=== PATIENT | male | born 1960 | race Caucasian/White ===

== ENCOUNTER 2022-12-31 17:18 | Observation (INO) | payer OTHER, SELFPAY ==
[2022-12-31] VITALS (26 sets, daily range): BP systolic 162–180; BP diastolic 94–121; PULSE 84–111; RESP 14–26; TEMP 36.7–36.9; O2SAT 95–98; BMI 31.6; BMI 28.5
--- NOTE | 2022-12-31 17:30 | ECG_ITS ---
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
--- NOTE | 2022-12-31 17:31 | XR_ITS ---
The [address] [address] Patient Name: LIZET RICE MRN: [id number] date: 1960 Sex: M Assigned Patient Location: ER Current Patient Location: ER Accession/Order Number: [id number] Exam Date: 12/31/2022 17:48 Report Date: 12/31/2022 18:32 At the request of: KP CISNEROS Procedure: XR chest 1V EXAM: XR chest 1V HISTORY: confusion COMPARISON: None. TECHNIQUE: One view was performed. FINDINGS: The cardiac silhouette is normal in size. The aorta is tortuous. There is mild central bronchial wall thickening suggestive of bronchitis. There is no focal consolidation, pleural effusion or pneumothorax. Bones and soft tissues appear unremarkable. XR/XR chest 1V IMPRESSION: 1. Mild bronchial wall thickening suggestive of bronchitis. 2. No focal consolidation. Electronically authenticated by: ASMITA RATLIFF Date: 12/31/2022 18:32
--- NOTE | 2022-12-31 17:31 | ED_ITS ---
Documented by User: Matt Gonzalez MD 12/31/22 21:37 HPI - Neuro Symptoms/Deficit General Chief Complaint: Neuro Symptoms/Deficit Stated Complaint: CONFUSION Time Seen by Provider: 12/31/22 17:30 History of Present Illness HPI Narrative: the patient was initially seen by and signed out to me after discussing the case with him thoroughly. The patient's symptoms began yesterday and are confusion. 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 He wasn't sure how to do so he's been doing that every day for years. He has no neurologic deficits and his NIH score is zero. Related Data Home Medications Medication Instructions Recorded Confirmed aspirin 81 mg capsule 81 mg PO DAILY 12/31/22 12/31/22 ibuprofen 200 mg tablet (Addaprin) 200 mg PO TID-QID PRN fever 12/31/22 12/31/22 naproxen sodium 220 mg tablet 220 mg PO BID PRN pain 12/31/22 12/31/22 (Aleve) Allergies Allergy/AdvReac Type Severity Reaction Status Date / Time No Known Drug Allergies Allergy Verified 12/31/22 17:25 [facility] Medical History (Updated 12/31/22 @ 21:37 by Matt Gonzalez MD) Lung nodule ?R91.1 - Solitary pulmonary nodule (ICD-10) PTSD (post-traumatic stress disorder) ?F43.10 - Post-traumatic stress disorder, unspecified (ICD-10) Exam Constitutional Vital Signs, click to edit/add: Last Vital Signs Temp 98.4 F 12/31/22 17:21 Pulse 106 H 12/31/22 17:57 Resp 18 12/31/22 17:57 BP 178/94 H 12/31/22 17:57 Pulse Ox 97 12/31/22 17:57 O2 Del Method Room Air 12/31/22 17:35 Course Vital Signs Vital signs: Vital Signs Temperature 98.4 F 12/31/22 17:21 Pulse Rate 109 H 12/31/22 17:21 Respiratory Rate 18 12/31/22 17:21 Blood Pressure 168/100 H 12/31/22 17:21 Pulse Oximetry 97 12/31/22 17:21 Oxygen Delivery Method Room Air 12/31/22 17:21 Temperature 98.4 F 12/31/22 17:21 Pulse Rate 106 H 12/31/22 17:57 Respiratory Rate 18 12/31/22 17:57 Blood Pressure 178/94 H 12/31/22 17:57 Pulse Oximetry 97 12/31/22 17:57 Oxygen Delivery Method Room Air 12/31/22 17:35 MDM - Neuro Symptoms/Deficit MDM Narrative Medical decision making narrative: CT and CTA are negative and the case is discussed with Dr. Colvin. The patient will be admitted here and will likely need an MRI tomorrow. Differential Diagnosis Differential diagnosis: Likely transient cerebral ischemia and other (CVA, confusion) Lab Data Attestation: I reviewed the patient's lab results. Labs: Lab Results 12/31/22 Range/Units 17:44 WBC 9.0 (4.0-11.0) 10^3/uL RBC 4.53 L (4.70-6.10) 10^6/uL Hgb 14.5 (14.0-18.0) g/dL Hct 42.6 (42.0-54.0) % MCV 94.0 (80.0-94.0) fL MCH 32.0 (25.9-34.0) pg MCHC 34.0 (29.9-35.2) g/dL RDW 12.7 (11.0-15.0) % Plt Count 282 (150-450) 10^3/uL MPV 10.5 (9.5-13.5) fL Neut % (Auto) 57.5 (43.0-75.0) % Lymph % (Auto) 30.8 (20.5-60.0) % [place] % (Auto) 6.6 (1.7-12.0) % Eos % (Auto) 4.2 (0.9-7.0) % Baso % (Auto) 0.6 (0.2-2.0) % Neut # (Auto) 5.2 (1.4-6.5) 10^3/uL Lymph # (Auto) 2.8 (1.2-3.8) 10^3/uL [place] # (Auto) 0.6 (0.3-0.8) 10^3/uL Eos # (Auto) 0.4 (0.0-0.7) 10^3/uL Baso # (Auto) 0.1 (0.0-0.1) 10^3/uL Abs Immat Gran (auto) 0.03 (0.00-0.03) 10^3/uL Imm/Tot Granulo (auto) 0.3 (0.0-0.5) % Sodium 141 (136-145) mmol/L Potassium 4.1 (3.5-5.1) mmol/L Chloride 103 (98-107) mmol/L Carbon Dioxide 28.7 (21.0-32.0) mmol/L Anion Gap 13.4 BUN 15.0 (7.0-18.0) mg/dL Creatinine 0.96 (0.70-1.30) mg/dL Est GFR ( Amer) >60 (>=60) Est GFR (Non-Af Amer) >60 (>=60) BUN/Creatinine Ratio 15.6 Glucose 93 (74-106) mg/dL Calcium 9.7 (8.5-10.1) mg/dL Total Bilirubin 0.6 (0.2-1.0) mg/dL AST 20 (15-37) U/L ALT 26 (16-63) U/L Alkaline Phosphatase 80 (46-116) U/L Total Protein 7.8 (6.4-8.2) g/dL Albumin 3.9 (3.4-5.0) g/dL Globulin 3.9 g/dL Albumin/Globulin Ratio 1.0 TSH 1.301 (0.358-3.740) uIU/mL Imaging Data CT brain, CTA brain: Radiologist's impression: Procedure: CT angio head EXAM: CT angio head HISTORY: altered mental status COMPARISON: CT head 12/31/2022. TECHNIQUE: Axial postcontrast CTA imaging of the head was performed with coronal and sagittal reformats. Maximum intensity projection and 3-D reformats were performed on a separate workstation. FINDINGS: Anterior circulation: No evidence of aneurysm, significant stenosis, or occlusion. Vertebrobasilar system: No evidence of aneurysm, significant stenosis, or occlusion. Strongly hypoplastic bilateral P1 posterior cerebral artery segment with type bilateral posterior cerebral arteries. Venous sinuses: Grossly patent. Additional comments: No abnormal intracranial enhancement. IMPRESSION: No significant stenosis, large vessel occlusion or aneurysm involving the intracranial arterial vasculature. Electronically authenticated by: IVA Berry: 12/31/2022 20:56 Procedure: CT stroke head/brain wo con EXAMINATION: CT stroke head/brain wo con, 12/31/2022 5:48 PM EDT HISTORY: confusion COMPARISON: None. TECHNIQUE: CT scan of the head was performed without IV contrast. CT dose reduction technique was used, including Automated Exposure Control. FINDINGS: BRAIN PARENCHYMA/CSF SPACES: Moderately enlarged ventricles and sulci consistent with atrophy. There is no hemorrhage, mass effect or midline shift. Small likely chronic lacunar infarct in the right basal ganglia. Mild low-attenuation in the white matter consistent with chronic microvascular ischemia. There is a partially empty sella. PARANASAL SINUSES: Air-fluid level and mucosal thickening in the right sphenoid sinus consistent with sinusitis. SKULL BASE AND CALVARIUM: Normal. EXTRACRANIAL SOFT TISSUES: Normal. IMPRESSION: 1. No acute intracranial abnormality. 2. Atrophy, chronic microvascular ischemia and chronic lacunar infarct in the right basal ganglia. 3. Mild right sphenoid sinusitis. 4. Partially empty sella. Electronically authenticated by: ASMITA RATLIFF Date: 12/31/2022 18:33 Discharge Plan Discharge Chief Complaint: Neuro Symptoms/Deficit Clinical Impression: Acute confusion Patient Disposition: Admitted as Observation Time of Disposition Decision: 21:37 Condition: Good Prescriptions / Home Meds: No Action aspirin 81 mg capsule 81 mg PO DAILY naproxen sodium [Aleve] 220 mg tablet 220 mg PO BID PRN (Reason: pain) ibuprofen [Addaprin] 200 mg tablet 200 mg PO TID-QID PRN (Reason: fever) Referrals: Physician,Non-Staff, [Primary Care Provider] - 1 week Documented by User: Chuy Grissom MD HPI - Neuro Symptoms/Deficit General Chief Complaint: Neuro Symptoms/Deficit Stated Complaint: CONFUSION Time Seen by Provider: 12/31/22 17:30 Source: family Mode of arrival: ambulance Related Data Home Medications Medication Instructions Recorded Confirmed aspirin 81 mg capsule 81 mg PO DAILY 12/31/22 12/31/22 ibuprofen 200 mg tablet (Addaprin) 200 mg PO TID-QID PRN fever 12/31/22 12/31/22 naproxen sodium 220 mg tablet 220 mg PO BID PRN pain 12/31/22 12/31/22 (Aleve) Allergies Allergy/AdvReac Type Severity Reaction Status Date / Time No Known Drug Allergies Allergy Verified 12/31/22 17:25 PFSH [facility] Medical History (Updated 12/31/22 @ 21:37 by Matt Gonzalez MD) Lung nodule ?R91.1 - Solitary pulmonary nodule (ICD-10) PTSD (post-traumatic stress disorder) ?F43.10 - Post-traumatic stress disorder, unspecified (ICD-10) Exam Constitutional Vital Signs, click to edit/add: Last Vital Signs Temp 98.4 F 12/31/22 17:21 Pulse 106 H 12/31/22 17:57 Resp 18 12/31/22 17:57 BP 178/94 H 12/31/22 17:57 Pulse Ox 97 12/31/22 17:57 O2 Del Method Room Air 12/31/22 17:35 Course Vital Signs Vital signs: Vital Signs Temperature 98.4 F 12/31/22 17:21 Pulse Rate 109 H 12/31/22 17:21 Respiratory Rate 18 12/31/22 17:21 Blood Pressure 168/100 H 12/31/22 17:21 Pulse Oximetry 97 12/31/22 17:21 Oxygen Delivery Method Room Air 12/31/22 17:21 Temperature 98.4 F 12/31/22 17:21 Pulse Rate 106 H 12/31/22 17:57 Respiratory Rate 18 12/31/22 17:57 Blood Pressure 178/94 H 12/31/22 17:57 Pulse Oximetry 97 12/31/22 17:57 Oxygen Delivery Method Room Air 12/31/22 17:35 MDM - Neuro Symptoms/Deficit Lab Data Labs: Lab Results 12/31/22 Range/Units 17:44 WBC 9.0 (4.0-11.0) 10^3/uL RBC 4.53 L (4.70-6.10) 10^6/uL Hgb 14.5 (14.0-18.0) g/dL Hct 42.6 (42.0-54.0) % MCV 94.0 (80.0-94.0) fL MCH 32.0 (25.9-34.0) pg MCHC 34.0 (29.9-35.2) g/dL RDW 12.7 (11.0-15.0) % Plt Count 282 (150-450) 10^3/uL MPV 10.5 (9.5-13.5) fL Neut % (Auto) 57.5 (43.0-75.0) % Lymph % (Auto) 30.8 (20.5-60.0) % [place] % (Auto) 6.6 (1.7-12.0) % Eos % (Auto) 4.2 (0.9-7.0) % Baso % (Auto) 0.6 (0.2-2.0) % Neut # (Auto) 5.2 (1.4-6.5) 10^3/uL Lymph # (Auto) 2.8 (1.2-3.8) 10^3/uL [place] # (Auto) 0.6 (0.3-0.8) 10^3/uL Eos # (Auto) 0.4 (0.0-0.7) 10^3/uL Baso # (Auto) 0.1 (0.0-0.1) 10^3/uL Abs Immat Gran (auto) 0.03 (0.00-0.03) 10^3/uL Imm/Tot Granulo (auto) 0.3 (0.0-0.5) % Sodium 141 (136-145) mmol/L Potassium 4.1 (3.5-5.1) mmol/L Chloride 103 (98-107) mmol/L Carbon Dioxide 28.7 (21.0-32.0) mmol/L Anion Gap 13.4 BUN 15.0 (7.0-18.0) mg/dL Creatinine 0.96 (0.70-1.30) mg/dL Est GFR ( Amer) >60 (>=60) Est GFR (Non-Af Amer) >60 (>=60) BUN/Creatinine Ratio 15.6 Glucose 93 (74-106) mg/dL Calcium 9.7 (8.5-10.1) mg/dL Total Bilirubin 0.6 (0.2-1.0) mg/dL AST 20 (15-37) U/L ALT 26 (16-63) U/L Alkaline Phosphatase 80 (46-116) U/L Total Protein 7.8 (6.4-8.2) g/dL Albumin 3.9 (3.4-5.0) g/dL Globulin 3.9 g/dL Albumin/Globulin Ratio 1.0 TSH 1.301 (0.358-3.740) uIU/mL Discharge Plan Discharge Chief Complaint: Neuro Symptoms/Deficit Clinical Impression: Acute confusion Patient Disposition: Admitted as Observation Time of Disposition Decision: 21:37 Condition: Good Prescriptions / Home Meds: No Action aspirin 81 mg capsule 81 mg PO DAILY naproxen sodium [Aleve] 220 mg tablet 220 mg PO BID PRN (Reason: pain) ibuprofen [Addaprin] 200 mg tablet 200 mg PO TID-QID PRN (Reason: fever) Referrals: Physician,Non-Staff, MD [Primary Care Provider] - 1 week
--- NOTE | 2022-12-31 17:32 | CT_ITS ---
The [address] [address] Patient Name: LIZET RICE MRN: [id number] date: 1960 Sex: M Assigned Patient Location: ER Current Patient Location: ER Accession/Order Number: [id number] Exam Date: 12/31/2022 17:48 Report Date: 12/31/2022 18:33 At the request of: KP CISNEROS Procedure: CT stroke head/brain wo con EXAMINATION: CT stroke head/brain wo con, 12/31/2022 5:48 PM EDT HISTORY: confusion COMPARISON: None. TECHNIQUE: CT scan of the head was performed without IV contrast. CT dose reduction technique was used, including Automated Exposure Control. FINDINGS: BRAIN PARENCHYMA/CSF SPACES: Moderately enlarged ventricles and sulci consistent with atrophy. There is no hemorrhage, mass effect or midline shift. Small likely chronic lacunar infarct in the right basal ganglia. Mild low-attenuation in the white matter consistent with chronic microvascular ischemia. There is a partially empty sella. PARANASAL SINUSES: Air-fluid level and mucosal thickening in the right sphenoid sinus consistent with sinusitis. SKULL BASE AND CALVARIUM: Normal. EXTRACRANIAL SOFT TISSUES: Normal. CT/CT stroke head/brain wo con IMPRESSION: 1. No acute intracranial abnormality. 2. Atrophy, chronic microvascular ischemia and chronic lacunar infarct in the right basal ganglia. 3. Mild right sphenoid sinusitis. 4. Partially empty sella. Electronically authenticated by: ASMITA RATLIFF Date: 12/31/2022 18:33
--- NOTE | 2022-12-31 17:36 | PC.NURSE ---
bilat hand grasps strong and equal, bilat feet strength strong and equal, bilat pupils slow but equal and reactive. No facial drooping at this time
[2022-12-31 17:52] LABS: Basophils Absolute Auto 0.1 10^3/uL (0.0-0.1); Basophils Percent Auto 0.6 % (0.2-2.0); Eosinophils Absolute Auto 0.4 10^3/uL (0.0-0.7); Eosinophils Percent Auto 4.2 % (0.9-7.0); Hematocrit 42.6 % (42.0-54.0); Hemoglobin 14.5 g/dL (14.0-18.0); Immature Granulocytes Abs Auto 0.03 10^3/uL (0.00-0.03); Immature Granulocytes Pct Auto 0.3 % (0.0-0.5); Lymphocytes Absolute Auto 2.8 10^3/uL (1.2-3.8); Lymphocytes Percent Auto 30.8 % (20.5-60.0); Mean Platelet Volume 10.5 fL (9.5-13.5); Monocytes Absolute Auto 0.6 10^3/uL (0.3-0.8); Monocytes Percent Auto 6.6 % (1.7-12.0); Neutrophils Absolute Auto 5.2 10^3/uL (1.4-6.5); Neutrophils Percent Auto 57.5 % (43.0-75.0); Platelet Count 282 10^3/uL (150-450); Red Blood Count 4.53 10^6/uL (4.70-6.10); Red Cell Distribution Width 12.7 % (11.0-15.0)
[2022-12-31 18:12] LABS: Alanine Aminotransferase 26 U/L (16-63); Albumin Level 3.9 g/dL (3.4-5.0); Alkaline Phosphatase 80 U/L (46-116); Anion Gap 13.4; Aspartate Amino Transferase 20 U/L (15-37); BUN Creatinine Ratio 15.6; Bilirubin Total 0.6 mg/dL (0.2-1.0); Calcium 9.7 mg/dL (8.5-10.1); Carbon Dioxide 28.7 mmol/L (21.0-32.0); Chloride 103 mmol/L (98-107); Estimated GFR (African America >60 (>=60); Estimated GFR (Non-African Ame >60 (>=60); Globulin 3.9 g/dL; Glucose 93 mg/dL (74-106); Potassium 4.1 mmol/L (3.5-5.1); Sodium 141 mmol/L (136-145); Total Protein 7.8 g/dL (6.4-8.2)
[2022-12-31 18:17] LABS: Thyroid Stimulating Hormone 1.301 uIU/mL (0.358-3.740)
--- NOTE | 2022-12-31 18:27 | CT_ITS ---
The [address] [address] Patient Name: LIZET RICE MRN: [id number] date: 1960 Sex: M Assigned Patient Location: ED.MAIN Current Patient Location: ED.MAIN Accession/Order Number: [id number] Exam Date: 12/31/2022 19:00 Report Date: 12/31/2022 20:56 At the request of: KP CISNEROS Procedure: CT angio head EXAM: CT angio head HISTORY: altered mental status COMPARISON: CT head 12/31/2022. TECHNIQUE: Axial postcontrast CTA imaging of the head was performed with coronal and sagittal reformats. Maximum intensity projection and 3-D reformats were performed on a separate workstation. FINDINGS: Anterior circulation: No evidence of aneurysm, significant stenosis, or occlusion. Vertebrobasilar system: No evidence of aneurysm, significant stenosis, or occlusion. Strongly hypoplastic bilateral P1 posterior cerebral artery segment with type bilateral posterior cerebral arteries. Venous sinuses: Grossly patent. Additional comments: No abnormal intracranial enhancement. CT/CT angio head IMPRESSION: No significant stenosis, large vessel occlusion or aneurysm involving the intracranial arterial vasculature. Electronically authenticated by: IVA WORTHINGTON Date: 12/31/2022 20:56
--- NOTE | 2022-12-31 20:50 | PC.NURSE ---
no changes in neuro status at this time
[2022-12-31 21:39] LABS: Amphetamine Screen Urine NEGATIVE (NEGATIVE); Barbiturates Screen Urine NEGATIVE (NEGATIVE); Benzodiazepines Screen Urine NEGATIVE (NEGATIVE); Buprenorphine Screen Urine NEGATIVE (NEGATIVE); Cannabinoid Screen Urine POSITIVE (NEGATIVE); Cocaine Screen Urine NEGATIVE (NEGATIVE); Methadone Screen Urine NEGATIVE (NEGATIVE); Methamphetamines Screen Urine NEGATIVE (NEGATIVE); Opiate Screen Urine NEGATIVE (NEGATIVE); Oxycodone Screen Urine NEGATIVE (NEGATIVE); Phencyclidine Screen Urine NEGATIVE (NEGATIVE); Tricyclic Antidepressant Urine NEGATIVE (NEGATIVE)
[2022-12-31] MEDS: NICOTINE 14 MG PATCH TD (21:54)
[2023-01-01] VITALS (18 sets, daily range): BP systolic 125–180; BP diastolic 76–104; PULSE 78–92; RESP 16–18; TEMP 36.4–36.7; O2SAT 92–94
--- NOTE | 2023-01-01 00:27 | MR_ITS ---
The [address] [address] Patient Name: LIZET RICE MRN: [id number] date: 1960 Sex: M Assigned Patient Location: MS Current Patient Location: MS Accession/Order Number: [id number] Exam Date: 01/01/2023 11:15 Report Date: 01/01/2023 14:45 At the request of: MANINDER SIDDIQUI Procedure: MR head/brain wo con MR head/brain wo con, 01/01/2023 11:15 AM EDT INDICATION: tia COMPARISON: CT of the head dated 12/31/2022 TECHNIQUE: Multiplanar, multisequential MRI images of brain were obtained without injection of contrast. FINDINGS: The cerebral sulci as well as ventricular system are appropriate for age. There is no restricted diffusion. Hyperintensities on T2 and FLAIR images in the vesna and solano radiata and centrum semiovale with sparing of U fibers are nonspecific, statistically most likely consistent with moderate microvascular ischemic changes. There is no intracranial mass, mass effect, midline shift, intra or extra-axial fluid collection or large hemorrhage. Normal flow-void in the intracranial vessels is noted. Mild mucosal thickening within the sphenoid and right maxillary sinuses is noted. There is a retention cyst within the right maxillary sinus. The visualized portions of orbits, mastoid air cells as well as remainder paranasal sinuses are unremarkable. MR/MR head/brain wo con IMPRESSION: No acute intracranial process is noted. Electronically authenticated by: YUNIER SARMIENTO Date: 01/01/2023 14:45
--- NOTE | 2023-01-01 00:27 | CA_ITS ---
Patient Name Site Name LIZET RICE [facility] Account No Medical Record Number Age Sex Date Time [id number] [facility]:[id number] M 01/02/2023 09:08 At the Request Of MANINDER SIDDIQUI ECHOCARDIOGRAM REPORT PROCEDURE: CA ECHO DOPPLER COMPLETE INDICATIONS: TIA, hypertension, smoker COMPARISON: None. DESCRIPTION: COMPLETE ECHOCARDIOGRAM Real-time transthoracic echocardiography with 2D, M-mode, spectral and color flow Doppler performed. QUALITY: Technical quality was good. LEFT VENTRICLE: Normal chamber size. Mild concentric left ventricular hypertrophy. Normal systolic function. LV EF: Normal left ventricular ejection fraction, (>55%). DIASTOLIC: Normal diastolic function. ATRIAL SEPTUM: LEFT ATRIUM: Normal chamber size. RIGHT ATRIUM: Normal chamber size. RIGHT VENTRICLE: Normal chamber size. Normal right ventricular systolic function. TRICUSPID VALVE: Normal mobility and thickness. No stenosis with no regurgitation. MITRAL VALVE: Normal mobility and thickness. No evidence of mitral valve stenosis. There is no mitral annular calcification. No mitral regurgitation. AORTIC VALVE: Normal trileaflet appearance. Mildly calcified aortic valve. Normal leaflet mobility. No evidence of aortic valve stenosis. Trivial aortic regurgitation. AORTIC ROOT: Normal diameter and appearance. PULMONIC VALVE: Normal thickness and mobility. No stenosis. Trivial regurgitation. PERICARDIUM: No evidence of pericardial effusion. IVC: Collapses with inspirations. PLEURA: CONCLUSION: 1. Mild concentric left ventricular hypertrophy with normal systolic function. LVEF is 60%. 2. Normal right ventricular size and systolic function. 3. No significant valvular dysfunction. Adult Echocardiography Procedure Report Left Ventricle LVEDD (3.7 - 5.6 cm): 4.34 cm LVESD (2.2 - 4.0 cm): 3.73 cm LVIVS thickness (0.6 - 1.2 cm): 1.03 cm LVPW thickness (0.5 - 1.0 cm): 1.16 cm e': 0.09 m/s E - e': 5.97 LVOT Max Gradient: 5.23 mm[Hg], 4.98 mm[Hg] LVOT Area (cm2): 1.13 m/s Peak Velocity (LVOT): 1.14 m/s, 1.12 m/s Mean Velocity (LVOT): 0.76 m/s LVOT Diameter 2.62 cm Left Atrium LA Volume Index (2D A2C): 23.78 ml/m2 Left Atrium Systolic Dimension: 2.90 cm Mitral Valve MV E to A Ratio: 0.71, 0.73 Mitral Valve A-Wave Peak Velocity: 0.74 m/s Mitral Valve E-Wave Peak Velocity: 0.53 m/s Right Ventricle Aorta AO Root Diam: 3.77 cm Aortic Valve AoV Area (Peak Horacio): 4.82 cm2, 4.88 cm2 AoV Area (VTI): 4.50 cm2, 4.43 cm2 Peak Velocity(Antegrade Flow): 1.26 m/s Peak Gradient(Antegrade Flow): 6.38 mm[Hg] Mean Velocity(Antegrade Flow): 0.91 m/s Mean Gradient(Antegrade Flow): 3.77 mm[Hg] Velocity Time Integral: 25.30 cm Tricuspid Valve Pulmonic Valve Mean Gradient: 2.37 mm[Hg], 2.52 mm[Hg] Mean Velocity: 0.73 m/s, 0.74 m/s Peak Velocity: 0.98 m/s, 0.85 m/s Peak Gradient: 2.91 mm[Hg], 3.74 mm[Hg], 3.97 mm[Hg] Right Atrium Right Atrium Systolic Pressure: 26.59 ml, 26.59 ml Dictated by: Feng Barrera M.D. on 01/02/2023 at 18:48 Approved by: Feng Barrera M.D. on 01/02/2023 at 18:50
--- NOTE | 2023-01-01 00:32 | W.PM.TELEPN ---
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 Over the last 24 hours, he has been having some episodes of confusion. He had trouble speaking and was not able to find the right word. He then had jumbled up speech. He denies facial droop dysphagia or any generalized weakness. He denies any ataxia. He was not able to work something on his computer and was not able to process well. He went to sleep and he woke up feeling better. He presented to the ED today because he started having worsening symptoms later in the afternoon. He stated he did receive his flu shot 2 to 3 weeks ago and a vaccine for herpes zoster. He underwent a head CT and is being admitted for further TIA work-up. Exam Narrative Exam Narrative: General : Alert and oriented x3 HEENT : Extraocular movements intact, pupils equal round and reactive to light and accommodation Neck: Supple, no JVD Chest: Clear to auscultation bilaterally, no wheezes Heart: Regular rate and rhythm, S1 and S2 heard Abdomen: Soft nontender nondistended. Extremities: No clubbing cyanosis or edema Neurologically: Moving all 4 extremities Skin: No rashes Constitutional Vital Signs, click to edit/add: Last Vital Signs Temp 98.1 F 12/31/22 22:34 Pulse 84 12/31/22 22:34 Resp 20 12/31/22 22:34 BP 164/96 H 12/31/22 22:34 Pulse Ox 96 12/31/22 22:34 O2 Del Method Room Air 12/31/22 22:34 Progress Note: Objective Labs Labs: Short CBC 12/31/22 Range/Units 17:44 WBC 9.0 (4.0-11.0) 10^3/uL Hgb 14.5 (14.0-18.0) g/dL Hct 42.6 (42.0-54.0) % Plt Count 282 (150-450) 10^3/uL BMP 12/31/22 17:44 Sodium 141 Potassium 4.1 Chloride 103 Carbon Dioxide 28.7 BUN 15.0 Creatinine 0.96 Glucose 93 Calcium 9.7 Liver Function 12/31/22 Range/Units 17:44 Total Bilirubin 0.6 (0.2-1.0) mg/dL AST 20 (15-37) U/L ALT 26 (16-63) U/L Alkaline Phosphatase 80 (46-116) U/L Albumin 3.9 (3.4-5.0) g/dL Progress Note: A&P Assessment and Plan (1) Acute confusion: Plan The patient is a 62-year-old male with above medical problems, presenting with confusion and expressive aphasia, likely from TIA. TIA -Provide supportive care -Placed on telemetry, look for underlying arrhythmia -Start daily aspirin -Check lipid panel -Check MRI of brain -Check echocardiogram and carotid ultrasound -PT/OT evaluation -Patient did have cannabis in his drug screen, his confusion could have also been related to that Nicotine dependence -Provide nicotine patch Accelerated hypertension -Hydralazine IV as needed Constipation -Add bowel regimen Dysuria -Check UA DVT Prophylaxis -Lovenox, SCDs Medication review -Medication reconciliation form completed Goals of care -Full code Communications -Discussed with the emergency room physician -Discussed with the bedside nurse -Patient updated of plan of care, all questions answered to their satisfaction Disposition -Home when medically stable Telemedicine clause -As the provider of this telehealth evaluation, requested by the patient's evaluating physician, I attest that I introduced myself to the patient, provided my credentials and determined that telemedicine via a real-time, two-way interactive audio and video platform is an appropriate and effective means of providing this service. -I reviewed the patient's chart and had a discussion with the member of the patient's treatment team. -The patient and I mutually agreed with continuation of this evaluation via telemedicine. The patient consented for the telemedicine evaluation. -This virtual encounter was taken place from [place], [place]. The encounter was approximately 35 minutes. The nurse was present during the entire time of the encounter and was able to remove the stethoscope and appropriate directions. The patient was evaluated at [facility] Telemedicine Attestation Telemedicine Attestation I conducted this encounter from [] via secure live, [id number] video conference with the patient, located at [facility] with []. Prior to the interview, the risks and benefits of telemedicine were discussed with the patient and verbal consent was obtained.
[2023-01-01] MEDS: ENOXAPARIN SODIUM 40 MG/0.4 ML SYRINGE SUBQ (01:39)
[2023-01-01] MEDS: ASPIRIN 81 MG TAB.CHEW PO ×2 (01:39→09:04)
[2023-01-01] MEDS: 0.9 % SODIUM CHLORIDE 1,000 ML 75 ML IV ×2 (01:39→13:57)
[2023-01-01 05:56] LABS: Chol HDL Ratio 3.9; Cholesterol 159 mg/dL (<=200); HDL Cholesterol 41 mg/dL (40-60); Triglycerides 80 mg/dL (<=150)
--- NOTE | 2023-01-01 07:52 | US_ITS ---
[address] [address] Patient Name: LIZET RICE MRN: [id number] date: 1960 Sex: M Assigned Patient Location: [place] Current Patient Location: [place] Accession/Order Number: [id number] Exam Date: 01/01/2023 09:45 Report Date: 01/01/2023 11:43 At the request of: JOSE VILCHIS Procedure: US carotid duplex BI ULTRASOUND Carotid artery color duplex History: TIA. COMPARISON: None. METHOD: Bilateral carotid arterial duplex examination was performed using B-mode, color flow and spectral analysis. Carotid stenosis is reported according to validated velocity parameters, similar to NASCET criteria. FINDINGS: There a moderate heterogeneous plaques in the right and left internal carotid arteries. There are normal-appearing spectral arterial waveforms. There is normal color flow. The peak-systolic velocity in the internal carotid arteries in cm/s is as follows: RIGHT INTERNAL CAROTID ARTERY Proximal: 65 Mid: 75 Distal: 86 LEFT INTERNAL CAROTID ARTERY Proximal: 46 Mid: 68 There are no elevated velocities in the common carotid or external carotid arteries bilaterally. There are forward-flow vertebral arteries. US/US carotid duplex BI IMPRESSION: No evidence of hemodynamically significant stenosis. Moderate heterogeneous plaque in the right and left internal carotid arteries. Electronically authenticated by: GEORGI STACK Date: 01/01/2023 11:43
--- NOTE | 2023-01-01 07:54 | P.HP_ITS ---
H&P: HPI History of Present Illness Chief complaint: CONFUSION, Altered Mental Status Narrative: patient is a 62-year-old male with past history of a one pack per day smoker but no other known history other than he reports she's been getting worked up for a right lung nodule. 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 He also receives care at the [facility] in [place] and notes he recently had a cardiac workup, pre-cancer screening and was given to be scheduled for a screening colonoscopy in January. They have also been working up this right lung nodule. He denies any prior stroke history states that his mother had a history of strokes when she was older. He has no history of high cholesterol no illicit drug use although he did test positive for marijuana. He states that he was in normal state of health until Monday of last week and he started to feel funny. He said he slept most of the day after feeling this way on Monday. He says simple tasks like managing his truck [employer] which she's done for years became more difficult and he couldn't think of how to use it. He also finds it difficult to find words but his speech does not appear slurred on exam. He denies any deficits such as arm hand or leg tingling or weakness. He denies any facial droop. He denies any head trauma. Initial CT of the head showed chronic microvascular changes with a chronic lacunar infarct in the right basal ganglia. CTA of the head was essentially not remarkable, and chest x-ray showed slight bronchitis. Patient was admitted to the hospital for workup of a presumed transient ischemic attack and further plan of care. At the time of admission exam he denies any issues other than a headache he states no visual changes, no weakness no tingling no slurred speech no facial droop. Still finds his memory to be sluggish. Review of Systems ROS Narrative ROS: a complete review of systems were reviewed with patient and are positive as below or listed in History of Chief Complaint. General: no fever, chills, night sweats Head: headache, no trauma, visual changes, nausea or vomiting Skin: no reported rashes, itching or sores Eyes: no blurriness of vision Ears: no reported hearing loss, vertigo, earache, or tinnitus Throat: no sore throat, hoarseness, swelling of neck, or tongue pain Heart: no chest pain Lungs: no shortness of breath or cough GI: no diarrhea or vomiting/nausea Urinary: no urinary urgency, frequency or pain Neuro: no numbness or tingling HEM: no bleeding issues or bruising ENDO: no thyroid problems Psych: no anxiety or depression PFSH [facility] Medical History (Updated 01/01/23 @ 14:16 by Miley Desai DO) Lung nodule ?R91.1 - Solitary pulmonary nodule (ICD-10) Major depressive disorder ?F32.9 - Major depressive disorder, single episode, unspecified (ICD-10) PTSD (post-traumatic stress disorder) ?F43.10 - Post-traumatic stress disorder, unspecified (ICD-10) Surgical History History of appendectomy ?Z90.49 - Acquired absence of other specified parts of digestive tract (ICD- 10) History of tonsillectomy and adenoidectomy ?Z90.89 - Acquired absence of other organs (ICD-10) Family History Mother Family history of stroke Other Dementia Family history of COPD (chronic obstructive pulmonary disease) Family history of cancer Family history of diabetes mellitus Social History Within the past year, how often did you have a drink containing alcohol: monthly or less Within the past year, how many standard drinks containing alcohol did you have on a typical day: 1 or 2 Within the past year, how often did you have six or more drinks on one occasion: monthly Total score: 2 Score interpretation: A score less than 4 is consistent with normal alcohol consumption. 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, [employer] Highest level of school completed/degree received: some college, no degree Are you now , , , , never or living with a partner: In a typical week, how many times do you talk on the telephone with family, friends, or neighbors: 3 or more times per week How often do you get together with friends or relatives: once per week How often do you attend faith or rastafarian services: never Do you belong to any clubs or organizations such as faith groups unions, fraternal or athletic groups, or school groups: no Total score: 1 Score interpretation: A score of less than or equal to 1 indicates the most socially isolated. Little interest or pleasure in doing things: several days Feeling down, depressed, or hopeless: more than half the days Feel stressed/tense/nervous/anxious/difficulty sleeping: rather much Life stressors: recent of family or friend Life stressor details: Lost , mother and dog in last 3 yrs Meds Home Medications and Allergies Home Medications Medication Instructions Recorded Confirmed Type aspirin 81 mg capsule 81 mg PO DAILY 12/31/22 12/31/22 History ibuprofen 200 mg tablet (Addaprin) 200 mg PO TID-QID PRN fever 12/31/22 12/31/22 History naproxen sodium 220 mg tablet 220 mg PO BID PRN pain 12/31/22 12/31/22 History (Aleve) omeprazole 20 mg capsule,delayed 20 mg PO DAILY 12/31/22 12/31/22 History release Allergies Allergy/AdvReac Type Severity Reaction Status Date / Time No Known Drug Allergies Allergy Verified 12/31/22 17:25 Exam Narrative Exam Narrative: General: Patient is alert, and oriented to person, place and time with flat affect, proper hygiene Skin: no visible rashes, or ulcers Head: atraumatic, acephalic Eyes: PERRLA, no nystagmus present, conjunctiva clear, no scleral icterus Ears: normal gross auditory acuity Nose: symmetric, no discharge, no maxillary or frontal sinus tenderness Mouth/Throat: no erythema, exudate, or tonsillar enlargement, normal dentition Neck: no masses palpated, normal thyroid, no JVD or audible carotid bruits Heart: Normal rate and rhythm, no murmurs/rubs/gallops Lungs: no audible wheezes, crackles and normal breath sounds all lung sierra Abdomen: Normal audible bowel sounds, no distension, No palpable masses, no organomegaly, no rebound/guarding/ or rigidity Musculoskeletal: muscle atrophy noted, ROM is limited due to being in hospital bed, no swelling bilateral lower extremities Vascular: Normal carotid, radial, femoral, posterior tibial, and dorsalis pedis pulses Lymph: no supraclavicular, axillary, or anterior/posterior cervical adenopathy Neuro: CN II-X grossly intact, normal sensation upper and lower extremities Constitutional Vital Signs, click to edit/add: Last Vital Signs Temp 97.8 F 01/01/23 06:00 Pulse 82 01/01/23 07:52 Resp 18 01/01/23 06:00 BP 154/87 H 01/01/23 06:00 Pulse Ox 92 L 01/01/23 06:00 O2 Del Method Room Air 01/01/23 06:00 Results Labs Labs: Short CBC 12/31/22 Range/Units 17:44 WBC 9.0 (4.0-11.0) 10^3/uL Hgb 14.5 (14.0-18.0) g/dL Hct 42.6 (42.0-54.0) % Plt Count 282 (150-450) 10^3/uL BMP 12/31/22 17:44 Sodium 141 Potassium 4.1 Chloride 103 Carbon Dioxide 28.7 BUN 15.0 Creatinine 0.96 Glucose 93 Calcium 9.7 Liver Function 12/31/22 Range/Units 17:44 Total Bilirubin 0.6 (0.2-1.0) mg/dL AST 20 (15-37) U/L ALT 26 (16-63) U/L Alkaline Phosphatase 80 (46-116) U/L Albumin 3.9 (3.4-5.0) g/dL Assessment and Plan Assessment and Plan (1) TIA (transient ischemic attack): Assessment and Plan: normal thyroid, normal cholesterol panel, normal glucose and liver enzymes kidney function and electrolytes, urine drug screen positive for THC .bilateral carotid Dopplers showed no evidence of stenosis but some plaques.CTA of the head showed no significant stenosis or large vessel occlusion or aneurysm.CT of the head showed no acute intracranial abnormality but chronic microvascular ischemia and chronic lacunar infarct in the right basal ganglia. Still awaiting results of MRI. Patient has no neurological deficits on exam.was started on aspirin, will start him on low-dose statin and Plavix. (2) Hypertension: Assessment and Plan: not on any medications at home will start lisinopril/hydrochlorothiazide 10/12.5 mg daily. (3) Acute confusion: Assessment and Plan: normal white blood cell count, awaiting results of urinalysis. This could be more acute psychosis given his history of PTSD and depression may benefit from outpatient psychiatric workup. (4) Major depressive disorder: (5) PTSD (post-traumatic stress disorder): Plan patient is in observation status Will continue Lovenox for deep vein thrombosis prophylaxis Patient is full code
[2023-01-01] MEDS: OMEPRAZOLE 20 MG CAPSULE.DR PO (09:05)
[2023-01-01] MEDS: ACETAMINOPHEN 325 MG TABLET 650 MG PO ×2 (11:06→23:13)
[2023-01-01] MEDS: HYDRALAZINE HCL 20 MG/ML VIAL 10 MG IVP (11:06)
[2023-01-01] MEDS: NICOTINE 14 MG PATCH TD (13:57)
[2023-01-01] MEDS: ATORVASTATIN CALCIUM 10 MG TABLET PO (21:55)
[2023-01-01] MEDS: LISINOPRIL/HYDROCHLOROTHIAZIDE 20-12.5 MG TABLET 1 TAB PO (21:55)
[2023-01-01] MEDS: CLOPIDOGREL BISULFATE 75 MG TABLET PO (21:55)
[2023-01-01] MEDS: TRAZODONE HCL 50 MG TABLET PO (23:13)
[2023-01-02] VITALS (10 sets, daily range): BP systolic 114–132; BP diastolic 74–88; PULSE 80–96; RESP 16–18; TEMP 36.3–36.6; O2SAT 92–99
[2023-01-02 01:49] LABS: Bilirubin Urine NEGATIVE (NEGATIVE); Blood Urine NEGATIVE (NEGATIVE); Clarity Urine CLEAR (CLEAR); Color Urine LT. YELLOW (YELLOW); Glucose Urine UA NEGATIVE (NEGATIVE); Ketones Urine NEGATIVE (NEGATIVE); Leukocyte Esterase Urine NEGATIVE (NEGATIVE); Nitrite Urine NEGATIVE (NEGATIVE); Protein Urine NEGATIVE (NEG/TRACE); Specific Gravity Urine <=1.005 (1.005-1.025); Urobilinogen Urine 0.2 EU/dL (0.2-1.0); pH Urine 6.5 (5.0-9.0)
[2023-01-02 01:52] LABS: Urine Microscopic Indicated NO
[2023-01-02 05:46] LABS: Basophils Absolute Auto 0.1 10^3/uL (0.0-0.1); Basophils Percent Auto 0.9 % (0.2-2.0); Eosinophils Absolute Auto 0.4 10^3/uL (0.0-0.7); Eosinophils Percent Auto 5.3 % (0.9-7.0); Hematocrit 40.1 % (42.0-54.0); Hemoglobin 13.5 g/dL (14.0-18.0); Immature Granulocytes Abs Auto 0.02 10^3/uL (0.00-0.03); Immature Granulocytes Pct Auto 0.3 % (0.0-0.5); Lymphocytes Absolute Auto 3.3 10^3/uL (1.2-3.8); Lymphocytes Percent Auto 41.4 % (20.5-60.0); Mean Corpuscular HGB Conc 33.7 g/dL (29.9-35.2); Mean Corpuscular Hemoglobin 31.3 pg (25.9-34.0); Mean Corpuscular Volume 92.8 fL (80.0-94.0); Mean Platelet Volume 11.1 fL (9.5-13.5); Monocytes Absolute Auto 0.6 10^3/uL (0.3-0.8); Monocytes Percent Auto 7.9 % (1.7-12.0); Neutrophils Absolute Auto 3.5 10^3/uL (1.4-6.5); Neutrophils Percent Auto 44.2 % (43.0-75.0); Platelet Count 235 10^3/uL (150-450); Red Blood Count 4.32 10^6/uL (4.70-6.10); Red Cell Distribution Width 12.5 % (11.0-15.0); White Blood Count 7.9 10^3/uL (4.0-11.0)
[2023-01-02 05:56] LABS: Anion Gap 13.4; BUN Creatinine Ratio 16.1; Calcium 8.9 mg/dL (8.5-10.1); Carbon Dioxide 25.4 mmol/L (21.0-32.0); Chloride 103 mmol/L (98-107); Estimated GFR (African America >60 (>=60); Estimated GFR (Non-African Ame >60 (>=60); Glucose 98 mg/dL (74-106); Potassium 3.8 mmol/L (3.5-5.1); Sodium 138 mmol/L (136-145)
[2023-01-02] MEDS: ACETAMINOPHEN 325 MG TABLET 650 MG PO (08:03)
--- NOTE | 2023-01-02 08:42 | P.DS_ITS ---
DS: Providers Provider Date of admission: 12/31/22 22:30 Primary care physician: Non-Staff Physician, Admitting clinician: Inga Colvin Consults: 01/01/23 00:24 Occupational Therapy Eval and Treat Routine Reason for consultation: tia Physical Therapy Eval and Treat Routine Reason for consultation: tia Attending physician on discharge: Miley Desai DS: Diagnosis Discharge Diagnosis (1) TIA (transient ischemic attack): (2) Hypertension: (3) Acute confusion: (4) Major depressive disorder: (5) PTSD (post-traumatic stress disorder): DS: Summary Hospital Course Hospital Course: patient is a 62-year-old male with past history of a one pack per day smoker but no other known history other than he reports he's been getting worked up for a right lung nodule at the [facility] in [place]. patient presented with acute confusion and difficulty finding words. Patient was admitted to telemetry for possible transient ischemic attack. CT scan of the head showed chronic microvascular changes and a chronic lacunar infarct of the right basal ganglia. CTA of the head was essentially nonremarkable as well as chest x-ray. Bilateral carotid artery duplexes showed slight plaque formation but no evidence of stenos is. Echocardiogram prelim read had a normal ejection fraction, but official echocardiogram read is still pending. Patient had no events on telemetry, had no neurological deficits on exam at the time of admission or at the time of discharge. Normal lab results, no evidence of infection. Urine drug screen was positive for marijuana. Patient has a history of depression and PTSD, we discussed that his Acute confusion could be from stress/lack of sleep or could also be worsening of his depression and PTSD symptoms. He is to closely follow with his primary care physician in [place] for further workup and plan of care. He will be discharged home today in stable condition, for treatment of his hypertension will be placed on lisinopril/hydrochlorothiazide once a day this was sent to his pharmacy in [place]. He is to go to the Emergency Room with any worsening symptoms. Status at Discharge Functional status at discharge: independent ambulation Time Spent with Patient Time attestation: Total time spent providing and/or coordinating discharge services: Time spent: greater than 30 minutes Exam Narrative Exam Narrative: General: Patient is alert, and oriented to person, place and time with normal affect, proper hygiene Skin: no visible rashes, or ulcers Head: atraumatic, acephalic Eyes: PERRLA, no nystagmus present, conjunctiva clear, no scleral icterus Ears: normal gross auditory acuity Heart: Normal rate and rhythm, no murmurs/rubs/gallops Lungs: no audible wheezes, crackles and normal breath sounds all lung sierra Musculoskeletal: no swelling bilateral lower extremities Neuro: CN II-X grossly intact, normal sensation upper and lower extremities Constitutional Vital Signs, click to edit/add: Last Vital Signs Temp 97.7 F 01/02/23 07:57 Pulse 84 01/02/23 07:57 Resp 18 01/02/23 07:57 BP 115/76 01/02/23 07:57 Pulse Ox 94 L 01/02/23 07:57 O2 Del Method Room Air 01/02/23 07:57 DS: Data Data Completed and Pending Labs on day of discharge: Labs from last 24 hours 01/02/23 01/01/23 04:27 01:00 WBC 7.9 RBC 4.32 L Hgb 13.5 L Hct 40.1 L MCV 92.8 MCH 31.3 MCHC 33.7 RDW 12.5 Plt Count 235 MPV 11.1 Neut % (Auto) 44.2 Lymph % (Auto) 41.4 [place] % (Auto) 7.9 Eos % (Auto) 5.3 Baso % (Auto) 0.9 Neut # (Auto) 3.5 Lymph # (Auto) 3.3 [place] # (Auto) 0.6 Eos # (Auto) 0.4 Baso # (Auto) 0.1 Abs Immat Gran (auto) 0.02 Imm/Tot Granulo (auto) 0.3 Sodium 138 Potassium 3.8 Chloride 103 Carbon Dioxide 25.4 Anion Gap 13.4 BUN 14.0 Creatinine 0.87 Est GFR ( Amer) >60 Est GFR (Non-Af Amer) >60 BUN/Creatinine Ratio 16.1 Glucose 98 Calcium 8.9 Urine Color Lt. yellow Urine Clarity Clear Urine pH 6.5 Ur Specific [place] <=1.005 A Urine Protein Negative Urine Glucose (UA) Negative Urine Ketones Negative Urine Occult Blood Negative Urine Nitrite Negative Urine Bilirubin Negative Urine Urobilinogen 0.2 Ur Leukocyte Esterase Negative Discharge Plan Discharge Disposition: Home, Self-Care Condition: Good Discharge Medications: New lisinopril-hydrochlorothiazide 20-12.5 mg Tablet 1 tab PO QD 30 Days Qty: 30 0RF Continued aspirin 81 mg capsule 81 mg PO DAILY naproxen sodium [Aleve] 220 mg tablet 220 mg PO BID PRN (Reason: pain) ibuprofen [Addaprin] 200 mg tablet 200 mg PO TID-QID PRN (Reason: fever) omeprazole 20 mg capsule,delayed release(DR/EC) 20 mg PO DAILY Activity: increase activity as tolerated Diet: advance to your usual diet Patient Instructions: Hypertensive Crisis (DC) Forms: Portal Instructions Follow Up Appointments: Follow up appt. with Dr. Gonzales ([facility]) on @ [facility] Office #: [phone] [facility]
[2023-01-02] MEDS: CLOPIDOGREL BISULFATE 75 MG TABLET PO (08:53)
[2023-01-02] MEDS: OMEPRAZOLE 20 MG CAPSULE.DR PO (08:53)
[2023-01-02] MEDS: ASPIRIN 81 MG TAB.CHEW PO (08:53)
[2023-01-02] MEDS: LISINOPRIL/HYDROCHLOROTHIAZIDE 20-12.5 MG TABLET 1 TAB PO (09:58)
--- NOTE | 2023-01-02 11:27 | SWNOTE1 ---
SW met with pt to discuss his dc needs. 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 SW asked if he had been working on getting a home? Pt stated he lost his 3 years ago and has all stuff in storage. Pt has family in [place] currently. He is deciding wether he wants to stay around [place] or move to [place] where he has other family. Pt does not want any resources in regards to housing etc. Pt does go to the [facility] for follow ups and has a colonscopy scheduled on 01/19/23. Pt is going to call his [employer] company to have them transport him back to his truck. At this time pt denies any needs.
--- NOTE | 2023-01-02 12:28 | CM.NOTE ---
Rounds made with Dr. Desai. Discharge today after Echo completed. Will need to follow up with his PCP once back home. Mr. Gonzalesomis verbalizes understanding.
--- NOTE | 2023-01-02 12:53 | SWNOTE1 ---
Nursing is not able to get ahold of [employer] and pt has not heard back yet either. SW spoke with pt and he is going to try [employer] again, if not able to get ahold of them, he will try family in [place].
[2023-01-02] MEDS: NICOTINE 14 MG PATCH TD (13:18)
--- NOTE | 2023-01-02 14:15 | SWNOTE1 ---
[employer] is not answering and pt is getting frustrated. Nursing called SW to come back in to assist. SW also recommended Fifi, director, come in as well as pt was cussing and wanting to go smoke a cigarette. SW spoke with Fifi and pt does have finances to pay for [employer] pass. SW went back in room and we attempted to set up [employer] bus, but they had no availability to [place] today. SW even checked from [employer] to [place] but nothing available until 10:30pm. SW and pt attempted to call his nephew and cousin, no answer. Pt then called his [employer] and spoke with the dispatch. They are able set him up with a hotel room at [facility] in [place] [facility] and they will contact him in the morning to let him know when someone will be getting him. KACEY did see the confirmation come through to pt's phone. KACEY set up trips to take pt to hotel and they will be here between 2:30-3:00. KACEY updated nursing.
--- NOTE | 2023-01-02 14:42 | SWNOTE1 ---
SW did address pt's Bipolar, anxiety, and PTSD with pt. He has been on several meds in past and they have helped. He has also went to counseling and that has helped him as well. He lost both his sisters and his within the past few years. He does not need any resources in regards to his anxiety,PTSD, or bipolar. He does follow up with [facility] he went through a lot during his service and his childhood.
--- NOTE | 2023-01-03 16:18 | CM.DCFOLLOWU ---
Person spoke with: patient How are you feeling? feeling better How is your pain? no pain Did you understand your discharge instructions? yes Do you have any questions about your discharge instructions? no Were you given any prescriptions at discharge? yes Were you able to get your prescriptions filled? attempting to get it filled. Do you understand how to take your medications as ordered? yes Do you have any questions about your follow up appointment and do you plan to keep your follow up appointment? no questions, yes keeping follow up Is there anything else that you would like to discuss? no Questions/Comments/Concerns/Other:
== END 2023-01-02 14:50 | disposition home or self-care (01) ==
LOC: ER 21:37 → MS 22:33
PROVIDERS: Emergency Medicine Emergency Medical Services; Admitting Provider Internal Medicine; Emergency Provider Emergency Medicine; Visit Provider Family Medicine
DX: G45.9 Transient cerebral ischemic attack, unspecified (principal); I10 Essential (primary) hypertension; R41.0 Disorientation, unspecified; F32.9 Major depressive disorder, single episode, unspecified; F43.10 Post-traumatic stress disorder, unspecified; F17.210 Nicotine dependence, cigarettes, uncomplicated; R91.1 Solitary pulmonary nodule; K59.00 Constipation, unspecified; R30.0 Dysuria; Z90.49 Acquired absence of other specified parts of digestive tract; Z90.89 Acquired absence of other organs; F12.90 Cannabis use, unspecified, uncomplicated; Z79.899 Other long term (current) drug therapy; Z79.82 Long term (current) use of aspirin
CPT/HCPCS: 36415; 70450; 70496; 70551; 71045; 80048; 80053; 80061; 80307; 81001; 81003; 84443; 85025; 93005; 93306; 93880; 96372; 96374; 97110; 97161; 97165; 99285; G0378; Q9967